=== PATIENT | female | born 1990 | race Caucasian/White ===

== ENCOUNTER 2023-02-11 13:54 | Inpatient (IN) | payer OTHER ==
[2023-02-11] MEDS ORDERED: fentaNYL 50 mcg/mL 1 mL Vial ONE ×2 (14:01)
[2023-02-11] MEDS ORDERED: Ondansetron PF 4 MG/2 ML Vial ONE (14:02)
[2023-02-11] MEDS ORDERED: Boostrix 0.5 ML (Tdap) VIAL (>/=7 yrs of age) ONE (14:02)
[2023-02-11] MEDS ORDERED: CEFAZOLIN 1 GM VIAL ONE (14:02)
[2023-02-11 14:58] LABS: #Monocytes 0.8 thou/uL (0.11-0.59); #Neutrophils 14.4 thou/uL (1.40-6.50); %Basophils 0.2 % (0.0-1.0); %Eosinophils 0.2 % (0.0-10.0); %Lymphocytes 11.7 % (21.0-51.0); %Monocytes 4.5 % (0.0-10.0); %Neutrophils 82.7 % (42.0-75.0); Hematocrit 39.4 % (36.0-47.0); Hemoglobin 12.7 g/dL (12.0-16.0); Mean Corpuscular HGB CONC 32.2 g/dL (32.0-36.0); Mean Corpuscular Hemoglobin 28.8 pg (27.0-31.0); Mean Corpuscular Volume 89.3 fl (78.0-98.0); Mean Platelet Volume 9.3 fL (7.4-10.4); Platelet Count 334 10x3/uL (130-400); RBC Distribution Width 13.1 % (11.5-14.5); Red Blood Cell (RBC) Count 4.41 mill/uL (4.20-5.40); White Blood Cell (WBC) Count 17.4 10x3/uL (4.8-10.8)
[2023-02-11 15:09] LABS: ALT (SGPT) 178 U/L (8-55); AST (SGOT) 217 U/L (5-34); Albumin 4.3 g/dL (3.5-5.0); Alkaline Phosphatase 62 U/L (40-110); Anion Gap 17 mmol/L (10-20); BUN (Urea Nitrogen) 14 mg/dL (7.0-18.7); Bilirubin, Total 0.4 mg/dL (0.2-1.2); Calc. Creatinine Clearance 0 mL/min (70-130); Calcium 9.2 mg/dL (7.8-10.44); Carbon Dioxide 17 mmol/L (22-29); Chloride 109 mmol/L (98-107); Estimated GFR 96; Globulin 3.2 g/dL (2.4-3.5); Glucose 118 mg/dL (70-105); INR-International Normal Ratio 1.1; PTT 27.5 sec (22.9-36.1); Potassium 4.3 mmol/L (3.5-5.1); Protein, Total 7.5 g/dL (6.0-8.3); Prothrombin Time 14.4 sec (12.0-14.7); Sodium 139 mmol/L (136-145)
[2023-02-11 15:11] LABS: BHCG - Serum Negative (NEGATIVE); Pregs Control Background? CLEAR/WHITE (CLR/WHITE); Pregs Control Bar Appear? YES (CONTROL BAR)
[2023-02-11 15:26] LABS: Troponin I Less than 0.010 ng/mL (< 0.028)
[2023-02-11] MEDS ORDERED: Promethazine HCl 25 MG/ML VIAL ONE ×3 (15:27→18:28)
[2023-02-11] MEDS ORDERED: Morphine 4 MG/ML VIAL ONE ×2 (15:54→19:28)
[2023-02-11] MEDS ORDERED: Ketorolac Tromethamine 30 MG/ML VIAL ONE (15:54)
[2023-02-11] MEDS ORDERED: Iopamidol-370 76% 500 ML MDV (1 ML CHARGE) ONE (15:55)
[2023-02-11] MEDS ORDERED: Lidocaine 1% w/Epinephrine 1:100K 20 ML VIAL ONE (16:09)
[2023-02-11] MEDS ORDERED: Ipratropium/Albuterol 3 ML NEB NEB PRN (17:06)
[2023-02-11] MEDS ORDERED: Morphine 2 MG/ML VIAL SLOW IVP PRN (17:06)
[2023-02-11] MEDS ORDERED: Ondansetron PF 4 MG/2 ML Vial IVP PRN (17:06)
[2023-02-11] MEDS ORDERED: Cyclobenzaprine 10 MG TAB PO PRN (17:12)
[2023-02-11] MEDS: traMADol HCl 50 MG TAB PO SCH ×2 (18:00→23:33)
[2023-02-11] MEDS ORDERED: Promethazine HCl 25 MG SUPP ONE (18:20)
[2023-02-11] MEDS: Gabapentin 300 MG CAP PO SCH (21:17)
[2023-02-11] MEDS: Famotidine/PF 20 mg/2ml Vial SLOW IVP SCH (21:17)
[2023-02-11] MEDS: Famotidine 20 MG TAB PO SCH (21:17)
[2023-02-11] MEDS: Sodium Chloride 0.9% 1,000 ML IV SCH (21:18)
[2023-02-11 22:56] VITALS: BMI 30.8
[2023-02-11] MEDS: Morphine 4 MG/ML VIAL SLOW IVP PRN (23:32)
[2023-02-11] MEDS: Acetaminophen 500 MG TAB PO SCH (23:32)
[2023-02-12] MEDS: Sodium Chloride 0.9% 1,000 ML IV SCH ×3 (04:36→17:40)
[2023-02-12] MEDS: Acetaminophen 500 MG TAB PO SCH ×3 (05:45→17:39)
[2023-02-12] MEDS: traMADol HCl 50 MG TAB PO SCH ×3 (05:46→17:39)
[2023-02-12 07:08] LABS: INR-International Normal Ratio 1.4; PTT 24.1 sec (22.9-36.1); Prothrombin Time 17.7 sec (12.0-14.7)
[2023-02-12] MEDS ORDERED: Lorazepam 0.5 MG TAB PO PRN (08:07)
[2023-02-12] MEDS ORDERED: Lactated Ringer's 1,000 ML IV SCH (08:15)
[2023-02-12 08:49] LABS: #Monocytes 0.8 thou/uL (0.11-0.59); #Neutrophils 5.7 thou/uL (1.40-6.50); %Basophils 0.4 % (0.0-1.0); %Eosinophils 0.4 % (0.0-10.0); %Lymphocytes 19.5 % (21.0-51.0); %Neutrophils 69.5 % (42.0-75.0); Hematocrit 31.8 % (36.0-47.0); Hemoglobin 10.1 g/dL (12.0-16.0); Mean Corpuscular HGB CONC 31.8 g/dL (32.0-36.0); Mean Corpuscular Hemoglobin 29.1 pg (27.0-31.0); Mean Corpuscular Volume 91.6 fl (78.0-98.0); Mean Platelet Volume 9.3 fL (7.4-10.4); Platelet Count 235 10x3/uL (130-400); RBC Distribution Width 13.3 % (11.5-14.5); Red Blood Cell (RBC) Count 3.47 mill/uL (4.20-5.40); White Blood Cell (WBC) Count 8.3 10x3/uL (4.8-10.8)
[2023-02-12 09:19] LABS: Anion Gap 12 mmol/L (10-20); BUN (Urea Nitrogen) 13 mg/dL (7.0-18.7); Calc. Creatinine Clearance 134 mL/min (70-130); Calcium 8.3 mg/dL (7.8-10.44); Carbon Dioxide 21 mmol/L (22-29); Chloride 111 mmol/L (98-107); Estimated GFR 98; Glucose 122 mg/dL (70-105); Potassium 5.9 mmol/L (3.5-5.1); Sodium 138 mmol/L (136-145)
[2023-02-12] MEDS ORDERED: CEFAZOLIN 2 GM in Sodium Chloride 0.9% 100 ML IVPB SCH ×2 (09:30→18:00)
[2023-02-12] MEDS: Famotidine 20 MG TAB PO SCH ×2 (10:25→20:40)
[2023-02-12] MEDS: Gabapentin 300 MG CAP PO SCH ×3 (10:26→20:40)
[2023-02-12] MEDS ORDERED: CEFAZOLIN 2 GM VIAL ONE (10:39)
[2023-02-12] MEDS ORDERED: Sodium Chloride 0.9% 0 ML ONE (10:39)
[2023-02-12] MEDS: Famotidine/PF 20 mg/2ml Vial SLOW IVP SCH ×2 (10:58→20:40)
[2023-02-12] MEDS ORDERED: Acetaminophen 500 MG TAB ONE (11:05)
[2023-02-12] MEDS ORDERED: fentaNYL 50 mcg/mL 1 mL Vial ONE ×5 (14:07→16:16)
[2023-02-12] MEDS ORDERED: PROPOFOL 200 MG/20 ML VIAL ONE (14:30)
[2023-02-12] MEDS ORDERED: Ondansetron PF 4 MG/2 ML Vial ONE (14:30)
[2023-02-12] MEDS ORDERED: Rocuronium Bromide 10 MG/ML (10ML VIAL) ONE (14:30)
[2023-02-12] MEDS ORDERED: Lidocaine 1% PF 5 ML VIAL ONE (14:30)
[2023-02-12] MEDS ORDERED: SUGAMMADEX SODIUM 200 MG/2 ML VIAL ONE (15:12)
[2023-02-12] MEDS ORDERED: Promethazine HCl 25 MG/ML VIAL ONE ×2 (15:42→15:59)
[2023-02-12] MEDS ORDERED: Ondansetron HCl/PF 4 MG/2 ML Vial IVP PRN (15:45)
[2023-02-12] MEDS ORDERED: HYDROmorphone 2 MG/ML VIAL SLOW IVP PRN (15:45)
[2023-02-12] MEDS ORDERED: Promethazine HCl 25 MG/ML VIAL IM PRN (15:45)
[2023-02-12 17:20] LABS: Anion Gap 13 mmol/L (10-20); BUN (Urea Nitrogen) 9 mg/dL (7.0-18.7); Calc. Creatinine Clearance 159 mL/min (70-130); Calcium 8.1 mg/dL (7.8-10.44); Carbon Dioxide 18 mmol/L (22-29); Chloride 112 mmol/L (98-107); Estimated GFR 117; Glucose 90 mg/dL (70-105); Potassium 3.8 mmol/L (3.5-5.1); Sodium 139 mmol/L (136-145)
[2023-02-12] MEDS: CEFAZOLIN 2 GM in Sodium Chloride 0.9% 100 ML IVPB SCH (20:39)
[2023-02-12] MEDS ORDERED: Scopolamine 1.5 mg/72 hour Patch TD SCH (21:00)
[2023-02-13] MEDS: traMADol HCl 50 MG TAB PO SCH ×5 (00:30→23:42)
[2023-02-13] MEDS: Acetaminophen 500 MG TAB PO SCH ×5 (00:31→23:41)
[2023-02-13] MEDS: Morphine 4 MG/ML VIAL SLOW IVP PRN (00:32)
[2023-02-13] MEDS: Sodium Chloride 0.9% 1,000 ML IV SCH (02:52)
[2023-02-13] MEDS: CEFAZOLIN 2 GM in Sodium Chloride 0.9% 100 ML IVPB SCH ×2 (05:48→14:22)
[2023-02-13 07:44] LABS: #Eosinphils 0.1 thou/uL (0.0-0.7); #Monocytes 0.5 thou/uL (0.11-0.59); #Neutrophils 4.7 thou/uL (1.40-6.50); %Basophils 0.1 % (0.0-1.0); %Eosinophils 0.9 % (0.0-10.0); %Lymphocytes 25.1 % (21.0-51.0); %Monocytes 6.9 % (0.0-10.0); %Neutrophils 66.7 % (42.0-75.0); Hematocrit 29.6 % (36.0-47.0); Hemoglobin 9.2 g/dL (12.0-16.0); Mean Corpuscular HGB CONC 31.1 g/dL (32.0-36.0); Mean Corpuscular Hemoglobin 29.1 pg (27.0-31.0); Mean Corpuscular Volume 93.7 fl (78.0-98.0); Mean Platelet Volume 9.5 fL (7.4-10.4); Platelet Count 201 10x3/uL (130-400); RBC Distribution Width 13.8 % (11.5-14.5); Red Blood Cell (RBC) Count 3.16 mill/uL (4.20-5.40)
[2023-02-13] MEDS: Gabapentin 300 MG CAP PO SCH ×3 (09:17→21:08)
[2023-02-13] MEDS: Cephalexin 250 MG CAP PO SCH ×3 (11:53→23:43)
[2023-02-14] MEDS: Cephalexin 250 MG CAP PO SCH ×2 (05:28→11:36)
[2023-02-14] MEDS: Acetaminophen 500 MG TAB PO SCH ×3 (05:28→17:39)
[2023-02-14] MEDS: traMADol HCl 50 MG TAB PO SCH ×2 (05:29→11:36)
[2023-02-14] MEDS: Gabapentin 300 MG CAP PO SCH ×2 (10:28→17:38)
[2023-02-14 17:01] VITALS: BP 108/71; TEMP 98.2
[2023-02-14] MEDS ORDERED: Labetalol HCl 100 MG TAB PO SCH (21:00)
[2023-02-15] MEDS ORDERED: Dextroamphetamine/Amphetamine [Adderall 20 Mg Tablet] 20 MG PO SCH (09:00)
== END 2023-02-14 17:40 | disposition home or self-care (01) | DRG 501 ==
LOC: ERS 13:54 → SURG A 17:09
PROVIDERS: ADMIT Surgery; ATTEND Surgery
PROC: 0HQ0XZZ Repair Scalp Skin, External Approach (ICD-10-PCS; principal; 2023-02-11)
PROC: 0KQ70ZZ Repair Right Upper Arm Muscle, Open Approach (ICD-10-PCS; 2023-02-12)
PROC: 0HQDXZZ Repair Right Lower Arm Skin, External Approach (ICD-10-PCS; 2023-02-12)
DX: S46.321A Laceration of muscle, fascia and tendon of triceps, right arm, initial encounter (principal); S22.41XA Multiple fractures of ribs, right side, initial encounter for closed fracture; S27.0XXA Traumatic pneumothorax, initial encounter; S27.321A Contusion of lung, unilateral, initial encounter; V89.2XXA Person injured in unspecified motor-vehicle accident, traffic, initial encounter; S51.011A Laceration without foreign body of right elbow, initial encounter; S81.012A Laceration without foreign body, left knee, initial encounter; S80.211A Abrasion, right knee, initial encounter; I10 Essential (primary) hypertension; F41.9 Anxiety disorder, unspecified
CPT/HCPCS: 12005; 36415; 70450; 70498; 71045; 71260; 72125; 74177; 80048; 80053; 84484; 84703; 85025; 85610; 85730; 90471; 90715; 93005; 96365; 96367; 96375; 96376; G0390; J0690; J1650; J1885; J2270; J2405; J2550; J2704; J3010; J3490; J7050; Q9967; S0028